=== PATIENT | male | born 1940 | race African-American/Black ===

== ENCOUNTER 2017-02-28 14:37 | Inpatient (IN) | payer MEDICARE, BC ==
[~2017-02-28] VITALS: Ht 172.7 cm; Wt 58.1 kg
[~2017-02-28 14:37] MED LIST: GABA-290 PO; HYDR-523 PO; RAMI10CA19 PO; TRIA1CAP6 PO; VALS160T2 PO
[2017-02-28 15:46] LABS: BASOPHILS % 0.7 % (0.0-2.0); EOSINOPHILS % 0.3 % (0.0-5.0); HEMATOCRIT. 32.5 % (42.0-52.0); HEMOGLOBIN. 10.8 g/dL (14.0-18.0); LYMPHOCYTES % 20.3 % (20.0-50.0); MEAN CORPUSCULAR HEMOGLOBIN 27.6 pg (28.0-32.0); MEAN CORPUSCULAR VOLUME 83.4 fL (80.0-94.0); MEAN PLATELET VOLUME 6.8 fl (7.4-10.4); MONOCYTES % 9.1 % (2.0-8.0); NEUTROPHILS % 69.6 % (40.0-76.0); PLATELET 519 x1000/uL (130-400); RED CELL DISTRIBUTION WIDTH 14.3 % (11.6-14.6)
[2017-02-28] MEDS ORDERED: MORPHINE SULFATE 4 MG/ML CPJ (NOT FOR IM USE) IV PRN (16:45)
[2017-02-28] MEDS ORDERED: ONDANSETRON HCL 4MG/2ML VIAL IV PRN (16:45)
[2017-02-28] MEDS ORDERED: SODIUM CHLORIDE 0.9% 1000ML BAG (SEPSIS BOLUS) IV ONE (17:00)
[2017-02-28 20:00] VITALS: BP 121/65
[2017-02-28 20:30] VITALS: BP 121/65
[2017-02-28] MEDS ORDERED: DEXTROSE 50% WATER 50ML SYRINGE IV PRN (20:30)
[2017-02-28] MEDS ORDERED: IPRATROPIUM/ALBUTEROL 0.5-3(2.5)MG/3ML NEB HHN SCH (21:00)
[2017-02-28] MEDS: BLOOD SUGAR DIAGNOSTIC STRIP TEST SCH (21:00)
[2017-02-28] MEDS: INSULIN LISPRO 100 UNITS/ML SUBCUT SCH (21:40)
[2017-02-28] MEDS: HYDROMORPHONE HCL/PF 2MG/ML CPJ IV PRN (22:10)
[2017-02-28] MEDS: SODIUM CHLORIDE 0.45% 1,000 ML IV SCH (22:43)
[2017-02-28] MEDS ORDERED: VANCOMYCIN 1 G PREMIX 200 ML IV SCH (23:00)
[2017-03-01] VITALS: BP 118/68
[2017-03-01] MEDS ORDERED: CEFEPIME 500 MG in DEXTROSE 5% WATER 50 ML IV SCH (01:00)
[2017-03-01 04:00] VITALS: BP 142/78
[2017-03-01 06:21] LABS: BASOPHILS % 0.9 % (0.0-2.0); HEMATOCRIT. 29.3 % (42.0-52.0); HEMOGLOBIN. 9.6 g/dL (14.0-18.0); LYMPHOCYTES % 20.7 % (20.0-50.0); MEAN CORPUSCULAR HEMOGLOBIN 27.9 pg (28.0-32.0); MEAN CORPUSCULAR VOLUME 85.3 fL (80.0-94.0); MEAN PLATELET VOLUME 6.7 fl (7.4-10.4); MONOCYTES % 9.4 % (2.0-8.0); PLATELET 416 x1000/uL (130-400); RED BLOOD CELL COUNT 3.44 mill/uL (4.7-6.1); RED CELL DISTRIBUTION WIDTH 14.1 % (11.6-14.6)
[2017-03-01] MEDS: BLOOD SUGAR DIAGNOSTIC STRIP TEST SCH ×4 (07:01→21:14)
[2017-03-01] MEDS: INSULIN LISPRO 100 UNITS/ML SUBCUT SCH ×4 (07:50→21:16)
[2017-03-01 08:00] VITALS: BP 98/54
[2017-03-01] MEDS: SODIUM CHLORIDE 0.45% 1,000 ML IV SCH (08:55)
[2017-03-01] MEDS ORDERED: CEFEPIME 1,000 MG in DEXTROSE 5% WATER 50 ML IV SCH (09:00)
[2017-03-01] MEDS ORDERED: IPRATROPIUM/ALBUTEROL 0.5-3(2.5)MG/3ML NEB HHN PRN (09:15)
[2017-03-01] MEDS: IPRATROPIUM/ALBUTEROL 0.5-3(2.5)MG/3ML NEB HHN SCH ×3 (09:52→19:53)
[2017-03-01 12:00] VITALS: BP 107/61
[2017-03-01] MEDS: SODIUM CHL 0.45% + KCL 20MEQ/L 1,000 ML IV SCH ×2 (12:16→23:21)
[2017-03-01] MEDS: HEPARIN 5000 UNITS/ML VIAL SUBCUT SCH ×2 (12:17→21:14)
[2017-03-01] MEDS: HYDROMORPHONE HCL/PF 2MG/ML CPJ IV PRN (13:34)
[2017-03-01 16:00] VITALS: BP 121/62
[2017-03-01] MEDS ORDERED: LORAZEPAM 2MG/ML CPJ IV PRN (18:45)
[2017-03-01 20:00] VITALS: BP 129/77
[2017-03-01] MEDS: VANCOMYCIN 750 MG PREMIX 150 ML IV SCH (23:20)
[2017-03-02] VITALS: BP 171/85
[2017-03-02] MEDS: LORAZEPAM 2MG/ML CPJ IV PRN ×2 (01:48→07:02)
[2017-03-02] MEDS: IPRATROPIUM/ALBUTEROL 0.5-3(2.5)MG/3ML NEB HHN SCH ×4 (02:25→20:24)
[2017-03-02] MEDS: CEFEPIME 1,000 MG in DEXTROSE 5% WATER 50 ML IV SCH (03:57)
[2017-03-02 04:00] VITALS: BP 171/89
[2017-03-02] MEDS: SODIUM CHL 0.45% + KCL 20MEQ/L 1,000 ML IV SCH ×2 (06:31→17:00)
[2017-03-02] MEDS: CLONIDINE 0.1MG TABLET PO PRN (06:36)
[2017-03-02] MEDS: BLOOD SUGAR DIAGNOSTIC STRIP TEST SCH ×4 (06:43→21:00)
[2017-03-02 06:47] LABS: BASOPHILS % 0.7 % (0.0-2.0); EOSINOPHILS % 0.7 % (0.0-5.0); HEMATOCRIT. 29.6 % (42.0-52.0); HEMOGLOBIN. 9.8 g/dL (14.0-18.0); LYMPHOCYTES % 16.2 % (20.0-50.0); MEAN CORPUSCULAR HEMOGLOBIN 27.8 pg (28.0-32.0); MEAN CORPUSCULAR VOLUME 84.1 fL (80.0-94.0); MEAN PLATELET VOLUME 6.8 fl (7.4-10.4); MONOCYTES % 7.1 % (2.0-8.0); NEUTROPHILS % 75.3 % (40.0-76.0); PLATELET 384 x1000/uL (130-400); RED BLOOD CELL COUNT 3.52 mill/uL (4.7-6.1); RED CELL DISTRIBUTION WIDTH 14.2 % (11.6-14.6)
[2017-03-02 07:38] LABS: CARBON DIOXIDE 28 mEq/L (21-32); CHLORIDE 101 mEq/L (98-107); PHOSPHORUS 1.3 mg/dL (2.5-4.9)
[2017-03-02 07:44] VITALS: BP 141/87
[2017-03-02] MEDS: HEPARIN 5000 UNITS/ML VIAL SUBCUT SCH (08:21)
[2017-03-02] MEDS: AMLODIPINE 10MG TABLET PO SCH (08:21)
[2017-03-02] MEDS: INSULIN LISPRO 100 UNITS/ML SUBCUT SCH ×4 (08:24→21:00)
[2017-03-02 12:00] VITALS: BP 153/76
[2017-03-02 16:00] VITALS: BP 115/61
[2017-03-02] MEDS ORDERED: POTASSIUM PHOS,M-BASIC-D-BASIC 30 MMOL in DEXT 5% WATER 500 ML IV SCH (16:00)
[2017-03-02 20:00] VITALS: BP 145/83
[2017-03-02] MEDS: VANCOMYCIN 750 MG PREMIX 150 ML IV SCH (23:00)
[2017-03-03] VITALS (7 sets, daily range): BP systolic 93–154; BP diastolic 50–91
[2017-03-03] MEDS: HEPARIN 5000 UNITS/ML VIAL SUBCUT SCH ×3 (00:11→21:19)
[2017-03-03] MEDS: IPRATROPIUM/ALBUTEROL 0.5-3(2.5)MG/3ML NEB HHN SCH ×3 (01:48→19:59)
[2017-03-03] MEDS: SODIUM CHL 0.45% + KCL 20MEQ/L 1,000 ML IV SCH (02:04)
[2017-03-03] MEDS: CEFEPIME 1,000 MG in DEXTROSE 5% WATER 50 ML IV SCH (02:04)
[2017-03-03 06:42] LABS: BASOPHILS % 0.5 % (0.0-2.0); EOSINOPHILS % 2.5 % (0.0-5.0); HEMATOCRIT. 32.6 % (42.0-52.0); HEMOGLOBIN. 10.5 g/dL (14.0-18.0); MEAN CORPUSCULAR HEMOGLOBIN 27.2 pg (28.0-32.0); MEAN PLATELET VOLUME 7.2 fl (7.4-10.4); MONOCYTES % 6.7 % (2.0-8.0); NEUTROPHILS % 72.3 % (40.0-76.0); PLATELET 445 x1000/uL (130-400); RED BLOOD CELL COUNT 3.88 mill/uL (4.7-6.1); RED CELL DISTRIBUTION WIDTH 13.9 % (11.6-14.6)
[2017-03-03] MEDS: BLOOD SUGAR DIAGNOSTIC STRIP TEST SCH ×4 (07:20→21:07)
[2017-03-03 07:29] LABS: CARBON DIOXIDE 27 mEq/L (21-32); PHOSPHORUS 1.4 mg/dL (2.5-4.9)
[2017-03-03 07:32] LABS: CHLORIDE 102 mEq/L (98-107)
[2017-03-03] MEDS ORDERED: SODIUM CHLORIDE 0.9% 1,000 ML IV SCH (08:30)
[2017-03-03 09:08] LABS: BG BASE EXCESS 3.8 mmol/L (-2.0-2.0); BG CARBOXYHEMOGLOBIN 0.6 % (0.5-1.5); BG DEOXYHEMOGLOBIN 0.6 % (0.0-5.0); BG HCO3 ACT 26.5 mmol/L (22.0-26.0); BG METHEMOGLOBIN 0.3 % (0.0-1.5); BG OXYGEN SATURATION 99.4 % (92.0-98.5); BG OXYHEMOGLOBIN 98.5 % (94.0-97.0); BG PCO2 33.8 mmHg (35.0-45.0); BG PH 7.513 (7.350-7.450); BG PO2 171.7 mmHg (75.0-100.0); BG SAMPLE SITE LEFT BRACHIAL; BG TOTAL HEMOGLOBIN 11.7 g/dL (12.0-18.0); BG VENT MODE MASK - TRACH
[2017-03-03] MEDS ORDERED: MAGNESIUM 2 G PREMIX 50 ML IV NR (10:00)
[2017-03-03] MEDS ORDERED: INSULIN DETEMIR UD 100 UNITS/ML SYR SUBCUT SCH (10:00)
[2017-03-03] MEDS ORDERED: POTASSIUM PHOS,M-BASIC-D-BASIC 30 MMOL in SODIUM CHLORIDE 0.9% 500 ML IV NR (10:00)
[2017-03-03] MEDS: AMLODIPINE 10MG TABLET PO SCH (10:55)
[2017-03-03] MEDS: INSULIN LISPRO 100 UNITS/ML SUBCUT SCH ×4 (11:21→21:18)
[2017-03-03] MEDS ORDERED: HYDROCODONE/ACETAMINOPHEN 10/325MG TABLET PO PRN (15:44)
[2017-03-03] MEDS: HYDROCODONE/ACETAMINOPHEN 5/325MG TABLET PO PRN ×2 (16:48→21:20)
[2017-03-03] MEDS: VANCOMYCIN 750 MG PREMIX 150 ML IV SCH (23:29)
[2017-03-04] VITALS (7 sets, daily range): BP systolic 99–124; BP diastolic 49–75
[2017-03-04] MEDS: IPRATROPIUM/ALBUTEROL 0.5-3(2.5)MG/3ML NEB HHN SCH ×3 (01:50→13:17)
[2017-03-04] MEDS: HYDROCODONE/ACETAMINOPHEN 5/325MG TABLET PO PRN ×2 (02:27→10:50)
[2017-03-04] MEDS: CEFEPIME 1,000 MG in DEXTROSE 5% WATER 50 ML IV SCH (02:31)
[2017-03-04] MEDS: CLONIDINE 0.1MG TABLET PO PRN (02:32)
[2017-03-04 06:55] LABS: BASOPHILS % 0.6 % (0.0-2.0); EOSINOPHILS % 3.6 % (0.0-5.0); HEMATOCRIT. 27.5 % (42.0-52.0); LYMPHOCYTES % 17.9 % (20.0-50.0); MEAN CORPUSCULAR HEMOGLOBIN 27.7 pg (28.0-32.0); MEAN CORPUSCULAR VOLUME 84.4 fL (80.0-94.0); NEUTROPHILS % 70.9 % (40.0-76.0); RED BLOOD CELL COUNT 3.26 mill/uL (4.7-6.1); RED CELL DISTRIBUTION WIDTH 13.9 % (11.6-14.6)
[2017-03-04] MEDS: BLOOD SUGAR DIAGNOSTIC STRIP TEST SCH ×2 (07:35→13:02)
[2017-03-04 07:56] LABS: CARBON DIOXIDE 27 mEq/L (21-32); CHLORIDE 101 mEq/L (98-107)
[2017-03-04] MEDS ORDERED: POTASSIUM CHLORIDE 20MEQ/PACKET PO NR (08:15)
[2017-03-04] MEDS: INSULIN LISPRO 100 UNITS/ML SUBCUT SCH ×2 (08:45→13:49)
[2017-03-04] MEDS: AMLODIPINE 10MG TABLET PO SCH (08:46)
[2017-03-04] MEDS: HEPARIN 5000 UNITS/ML VIAL SUBCUT SCH (08:46)
[2017-03-04] MEDS ORDERED: INSULIN DETEMIR UD 100 UNITS/ML SYR SUBCUT SCH (10:00)
[2017-03-04] MEDS ORDERED: POTASSIUM PHOS,M-BASIC-D-BASIC 15 MMOL in SODIUM CHLORIDE 0.9% 250 ML IV NR (10:00)
[2017-03-04] MEDS ORDERED: POTASSIUM CHLORIDE INJ 40 MEQ in DEXT 5% WATER 250 ML IV NR (13:00)
[2017-03-04] MEDS ORDERED: VANCOMYCIN 750 MG PREMIX 150 ML IV SCH (14:00)
== END 2017-03-04 15:15 | DRG 682 ==
LOC: ER 14:37 → 6WST 17:17 → CANRESERV 17:27 → ENRESERV 17:27
PROVIDERS: ADMIT Internal Medicine; ATTEND Internal Medicine
PROC: 02HV33Z Insertion of Infusion Device into Superior Vena Cava, Percutaneous Approach (ICD-10-PCS; principal; 2017-03-03)
PROC: B548ZZA Ultrasonography of Superior Vena Cava, Guidance (ICD-10-PCS; 2017-03-03)
DX: N17.1 Acute kidney failure with acute cortical necrosis (principal); G93.40 Encephalopathy, unspecified; J96.10 Chronic respiratory failure, unspecified whether with hypoxia or hypercapnia; E46 Unspecified protein-calorie malnutrition; Z93.0 Tracheostomy status; E11.52 Type 2 diabetes mellitus with diabetic peripheral angiopathy with gangrene; Z68.1 Body mass index [BMI] 19.9 or less, adult; E11.649 Type 2 diabetes mellitus with hypoglycemia without coma; E86.0 Dehydration; I10 Essential (primary) hypertension; J44.9 Chronic obstructive pulmonary disease, unspecified; D64.9 Anemia, unspecified; R62.7 Adult failure to thrive; E83.39 Other disorders of phosphorus metabolism; E87.6 Hypokalemia; G89.29 Other chronic pain; I25.10 Atherosclerotic heart disease of native coronary artery without angina pectoris; I65.21 Occlusion and stenosis of right carotid artery; I70.8 Atherosclerosis of other arteries; K21.9 Gastro-esophageal reflux disease without esophagitis; Z66 Do not resuscitate; Z79.4 Long term (current) use of insulin; Z82.49 Family history of ischemic heart disease and other diseases of the circulatory system; Z85.819 Personal history of malignant neoplasm of unspecified site of lip, oral cavity, and pharynx; Z79.899 Other long term (current) drug therapy; Z86.73 Personal history of transient ischemic attack (TIA), and cerebral infarction without residual deficits; Z87.891 Personal history of nicotine dependence
CPT/HCPCS: 36415; 36569; 36600; 51702; 71010; 76770; 76937; 80048; 80202; 82375; 82805; 82962; 83735; 84100; 85025; 92610; 94640; 94664; 96361; 96374; 96375; 99285; C1725; J0692; J1170; J1644; J1815; J2060; J2270; J2405; J3370; J3475; J3480; J3490; J7030; J7040; J7060; J7620